=== PATIENT | female | born 1985 | race Caucasian/White ===

== ENCOUNTER 2018-11-30 19:05 | Emergency (ER) | payer OTHER ==
--- NOTE | 2018-11-30 19:11 | EDPHY ---
HPI/HX/ROS/PE/MDM Narrative: CHIEF COMPLAINT: M1 hold, suicide attempt HPI: The patient is a 33-year-old female who arrives via ambulance and in custody of [place] [employer]. They were contacted by someone the patient knows who received picture of a suicide note from the patient. Apparently the patient admitted to police that she took an intentional overdose of several pills in an attempt to kill herself just prior to arrival. Per EMS, this consisted of approximately 8 tablets of naproxen of unknown strength, as well as 1.5 mg total of alprazolam. Also per EMS, the patient was drinking whiskey. The patient confirms this was a suicide attempt related to recent custody rm. She is has not provide further history. REVIEW OF SYSTEMS: Unable to obtain secondary to altered mental status. PMH: Includes anxiety. SOCIAL HISTORY: The patient admits to alcohol use, marijuana use. PHYSICAL EXAM: General:Patient is alert, in no acute distress. ENT:Eyes are normal to inspection. ENT inspection normal. Neck: Normal inspection. Full range of motion. Respiratory:No respiratory distress. Breath sounds normal bilaterally. Cardiovascular: Regular rate and rhythm. Strong peripheral pulses. Normal cap refill. Abdomen:The abdomen is nontender to palpation. There are no peritoneal signs. There are normal bowel sounds. Back: Normal to inspection. No tenderness to palpation. Skin: Normal color. No rash. Warm and dry. Extremities: Normal appearance. Full range of motion. Neuro: No focal deficits. Psych: Depressed affect, admits to SI. (Chris Perez) ED Course: 0652AM: No acute events overnight. Patient has been sleeping. Patient arrived to the emergency room she is on M1 hold for suicidal ideation. Drank alcohol last night. She also reports to me she took Flexeril. She is now alert and awake. She is sober. She is pending mental health evaluation She is signed over at 7:00 a.m. Shift change to Dr. Hernandez. (Kemar Martell) 0700: I assumed care of this patient from Dr. Martell at shift change. 0906: I consulted with the psych winterizer regarding this patient. This patient does not meet hold or inpatient care criteria. They will terminate the hold. (Hugo Hernandez) - Data Points Laboratory Results: Laboratory Results 11/30/18 19:36 02/17/19 19:36 General Initial Vital Signs: Initial Vital Signs Temperature (C) 36.9 C 11/30/18 19:56 Heart Rate 96 11/30/18 19:56 Respiratory Rate 20 11/30/18 19:56 Blood Pressure 110/65 11/30/18 19:56 O2 Sat (%) 94 11/30/18 19:56 O2 Delivery Mode Room Air Allergies/Adverse Reactions: No Known Allergies Allergy (Unverified 11/30/18 19:56) Home Medications: Medication Instructions Recorded Hydrocodone/APAP 5/325 [[place] 1 - 2 tab PO Q4 PRN #20 tab 05/10/14 5/325 (RX)] Penicillin V Potassium [Penicillin 500 mg PO BID #19 tab 05/10/14 VK] Departure - Departure Disposition: Home, Routine, Self-Care Clinical Impression: Suicidal ideation, Polysubstance abuse Condition: Good Instructions: Suicide Prevention (ED), Alcohol Intoxication (ED) Additional Instructions: 1. Follow-up with your mental health provider as directed. 2. Return to the ED for thoughts of self-harm, racing thoughts or other concerns. Referrals: [facility],. [Clinic] - As per Instructions
[2018-11-30 19:49] LABS: PLATELET COUNT 283 10^3/uL (150-400)
[2018-12-01 08:18] VITALS: BP 115/84
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
--- NOTE | 2018-12-01 13:38 | ASMTTCLDSP ---
TLC Discharge Disposition Disposition: Answers: Discharge If Answers: Yes DISCHARGED: Patient/family given suicide hotline info & [facility] brochure? Disposition Notes: Notes: Pt stated commitment or ability to keep self safe, denied thoughts of self harm or harm to others. Pt expressed a desire to f/u with [facility] in [place]. Pt was given local hotline information and [facility] brochure After an Attempt and encouraged to follow up with [facility]. Discharge Concerns/Recommendations: Notes: In consultation with [facility] ED physician, Hugo Hernandez MD, and on-call psychiatrist, Emil Villatoro MD, both concurred that pt does not appear to meet 27-65 criteria requiring psychiatric hospitalization as pt does not appear to be an imminent risk of harm to self/others/gravely disabled due to a mental illness condition. Dr. Villatoro provided telephone order read back vacating M1 hold at 0905 hrs. Was patient given the Answers: Not applicable Inpatient Behavioral Health Prohibited Belongings List while in the ED? Psychiatrist vacating M1 Emil Villatoro MD Hold: Date and time M1 hold 12/01/2018 09:05 AM vacated (time format is hh:mm): Type of Hold: Answers: M1/72-hour Hold Hold initiated by: Answers: Police Date Signed: 12/01/2018 01:37 PM Electronically Signed By:Braxton Renteria
== END 2018-12-01 09:44 | disposition home or self-care (01) ==
LOC: EDUNIT#
DX: R45.851 Suicidal ideations (principal); F19.10 Other psychoactive substance abuse, uncomplicated
CPT/HCPCS: 80305; G0480